=== PATIENT | female | born 1960 | race Caucasian/White ===

== ENCOUNTER 2025-03-18 16:09 | Outpatient (CLI) | payer MEDICARE ==
--- NOTE | 2025-03-19 07:01 | RADIOLOGY REPORT ---
CLINICAL INDICATION: PAIN L WRIST TECHNIQUE: Multiplanar, multi-sequence MRI of the left wrist was performed without intravenou s contrast. Contrast: None COMPARISON: None INTERPRETATION: Bones: There is no fracture. There is no marrow replacing lesion. Joints: Radiocarpal joint space narrowing. There is radiocarpal joint effusion. Fluid also noted in t he proximal and distal carpal row. Alignment is preserved. Ligaments: The scapholunate and lunotriquetral ligaments are intact. Extrinsic volar ligaments are in tact. 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 Components appear to be otherwi se grossly intact. Tendons: There is tendinosis and partial tear of the flexor carpi radialis tendon with fluid in the t endon sheath reflecting tenosynovitis. The tendons in the carpal tunnel are intact. The dorsal exten sor tendons are intact and there is no fluid distention in the tendon sheaths. Carpal tunnel grossly unremarkable. Neurovascular: Median nerve in the carpal tunnel is intact. Visualized ulna and radial nerves are int act. Muscles: Regional muscles are preserved in bulk and signal characteristics. Soft tissues: There is a multilobular cystic structure in the palmar surface superficial to the dista l radioulnar joint which measures 2.7 cm by 2.0 cm x 1.1 cm (transverse by AP by craniocaudal). IMPRESSION: 1. 2.7 cm multilobular cystic structure in the palmar surface of the left wrist superficial to the di stal radioulnar joint. Although assessment is limited without intravenous contrast, statistically, t he appearance is most suggestive of a ganglion cyst. 2. Tendinosis, partial tear and tenosynovitis of the flexor carpi radialis and its tendon sheath zachariah cent to the carpal tunnel. 3. Distal radial joint osteoarthrosis. Fluid in the carpal joints, nonspecific. 4. 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
== END 2025-03-18 23:59 | disposition home or self-care (01) ==
LOC: MRI02 16:09
PROVIDERS: ATTEND Pediatrics Sports Medicine
DX: S63.592A Other specified sprain of left wrist, initial encounter (principal); M25.532 Pain in left wrist; M65.4 Radial styloid tenosynovitis [de Quervain]; M65.842 Other synovitis and tenosynovitis, left hand; M25.531 Pain in right wrist; M19.032 Primary osteoarthritis, left wrist; X58.XXXA Exposure to other specified factors, initial encounter; Y93.89 Activity, other specified; Y92.89 Other specified places as the place of occurrence of the external cause; Y99.8 Other external cause status
CPT/HCPCS: 73221